=== PATIENT | male | born 1940 | race Caucasian/White ===

== ENCOUNTER 2016-11-28 09:40 | Emergency (ER) | payer MEDICARE ==
[~2016-11-28] VITALS: Ht 177.8 cm; Wt 84.1 kg
[~2016-11-28 09:40] MED LIST: ACET325T51 PO; ALFU10TA11 PO; AMLO5TAB2 PO; ASPI-973 PO; DULO20CA18 PO; LATA2.5D6 BOTH_EYES; LIP40 PO; LORA0.5T PO; METO-272 PO; OMEP40CA36 PO
--- NOTE | 2016-11-28 09:49 | ED.REPORT ---
HPI-Abd Pain M 40 and Over Date of Service Nov 28, 2016 ED Provider: Dr. Reyes Pt is a 76 y/o male w/ a hx of known cholelithiasis, CAD s/p CABG x1, bovine aortic valve replacement, hypertrophic cardiomyopathy, a-fib s/p ablation and pulmonary venous isolation maze, pacemaker insertion, HTN, GERD, presenting to the ED via EMS c/o RUQ pain onset today. He woke up today experiencing RUQ pain , fever of 102 F, diaphoresis, confusion described as decreased LOC, cough, and SOB. His noticed that he was somewhat jaundiced and called EMS after giving him Tylenol which resolved his fever. Pt denies CP, vomiting, diarrhea, change in baseline urinary frequency. His noticed he was somewhat confused yesterday night as well. He is not anticoagulated and takes aspirin daily. He rarely drinks alcohol. He was diagnosed with cholelithiasis 12/25/15 by US after presenting to the ED c/o back pain. There was a plan for cholelithiasis but an EKG abnormality was found which prompted further investigation which found him to have severe aortic stenosis and pericarditis. He underwent a bovine aortic valve replacement and CABG. Shortly after the CABG he presented to [facility] with a fever and delirium which resolved and the etiology was unclear. Nursing Notes Stated Complaint: RIGHT UPPER ABDOMINAL PAIN Nursing Notes Reviewed: Yes Allergies: Coded Allergies: iodine (Verified Allergy, Unknown, 04/04/16) Uncoded Allergies: Crab Meat (Allergy, Severe, Anaphylaxis, 01/18/14) Scheduled Alfuzosin ER (Alfuzosin ER) 10 Mg Tab.er.24h 10 MG PO DAILY Amlodipine (Amlodipine) 5 Mg Tablet 5 MG PO MORNING Aspirin (Aspirin) 81 Mg Tablet 162 MG PO DAILY Atorvastatin (Lipitor) 40 Mg Tablet 40 MG PO HS Duloxetine (Duloxetine) 20 Mg Capsule.dr 40 MG PO MORNING Latanoprost (Latanoprost) 2.5 Ml Drops 1 DROP BOTH_EYES HS Metoprolol Succinate ER (Metoprolol Succinate ER) 50 Mg Tab.er.24h 50 MG PO BID one in AM, one at bedtime Omeprazole (Omeprazole) 40 Mg Capsule.dr 40 MG PO MORNING Scheduled PRN Acetaminophen (Acetaminophen) 325 Mg Tablet 650 MG PO Q6H PRN PRN as ordered Lorazepam (Lorazepam) 0.5 Mg Tablet 0.5 MG PO HS PRN PRN For Insomnia General Time Seen by MD: 10:27 Chief Complaint Abdominal pain Hx Obtained From: Patient, EMS Arrived By: Ambulance Sudden in Onset?: No Onset Occurred: 1 - 4 hours ago Symptom Duration: Since onset Progression since Onset: Constant Location: : RUQ Quality: Painful Severity: Current: Moderate Severity: Maximum: Moderate Similar Sx Previous: Yes Past Medical History Past Medical History Notes: Dr. Shayne Law/ Dr. Riana Delgado Thoracic surgery (cardiothoracic vascular surgery) [phone] Past Medical History CAD s/p CABG x1 Hx of pericarditis Hx severe aortic stenosis s/p bovine aortic valve replacement Hypertrophic cardiomyopathy Cholelithiasis Atrial fibrillation s/p ablation and pulmonary venous isolation maze with left atrial appendage ligation Hx Mobitz II AV block s/p dual chamber pacemaker Hypertension GERD Anxiety Depression Glaucoma BPH Past Surgical History CABG x1 back surgery L5 double inguinal hernia surgery lymph node removal right armpit 2014: Pacemaker 02/24/2016: Bovine valve replacement (Dr. Cartagena) Catheter ablation and pulmonary venous isolation maze with left atrial appendage ligation Smoking History Former Smoker Social History Alcohol Use: Denies alcohol use Drug Use: Denies drug use Other Social History: Good social support, , Local resident Ambulatory Status Independent Review of Systems Constitutional: Reports: Fever Respiratory: Reports: Non-productive cough, Shortness of breath Cardiovascular: Denies: Chest pain GI: Reports: Abdominal pain, Denies: Diarrhea, Nausea, Vomiting Male: Denies Dysuria, Denies Urinary frequency (baseline) Complete sys rev & neg: except as marked. Skin: Reports Diaphoresis Physical Exam Initial Vital Signs Vital Signs (First) Date Time Temp Pulse Resp B/P Pulse Ox O2 Delivery O2 Flow Rate FiO2 11/28/16 10:29 36.8 95 14 149/96 97 Room Air Initial VS: Reviewed, Vital signs normal ENT: Mucous membranes moist, Conjunctiva normal Neck: Supple, Full range of motion Extremities: Vascular intact, Neuro intact Psychiatric: Mood/affect normal, Behavior normal, Normal thought content General/Constitutional: Awake, Alert, No acute distress, Cooperative, Not toxic appearing Appearance / Presentation: Positive: Icteric Respiratory / Chest: Breath sounds NL, Breath sounds = bilat, No respiratory distress, No rales, No rhonchi, No wheezing Cardiovascular: Heart rate NL, Regular rhythm, Heart sounds NL, No murmurs Abdomen: Atraumatic, Soft, No guarding, No rebound, No distention Tenderness/Guarding/Rebound: Positive: Tender RUQ... (Mild) Back: Full range of motion, Painless range of motion Head / Eyes: Normocephalic, PERRL Conjunctiva / Sclera: Positive: Icteric Skin: Atraumatic, Warm, Dry Color / Condition: Positive: Jaundice present Neurologic: Oriented X3, Speech NL, No motor deficits, No sensory deficits Mildly confused Interpretation & Diagnostics Interpretation & Diagnostics: US abdomen: IMPRESSION: The right kidney measures 12.9 cm and the left measures 10.4 cm. The liver is relatively small in size, the spleen is not enlarged, however. The liver echotexture is heterogeneous, suggestive of underlying cirrhosis. Several scattered hepatic cysts are again seen, gallstones are present within the gallbladder lumen, the gallbladder wall is at the upper limits of normal in thickness. A definite acute cholecystitis or biliary obstruction is not seen. Dictated by: Shawn Curtis M.D. on 11/28/2016 at 15:11 Approved by: Shawn Curtis M.D. on 11/28/2016 at 15:14 Lab Results Interpretation Result Diagram: 11/28/16 1051 11/28/16 1051 Test 11/28/16 10:31 11/28/16 10:51 11/28/16 11:48 11/28/16 13:46 Prothrombin Time 11.4sec (8.1-12.5) Prothromb Time International Ratio 1.06ratio White Blood Count 5.6th/mm3 (3.8-10.1) Red Blood Count 4.78mil/mm3 (4.40-5.80) Hemoglobin 14.5g/dL (13.8-17.2) Hematocrit 41.4% (41.0-50.0) Mean Corpuscular Volume 86.6fL (81-100) Mean Corpuscular Hemoglobin 30.3pg (27.0-35.0) Mean Corpuscular Hemoglobin Concent 35.0% (32.0-37.0) Red Cell Distribution Width 13.4% (12.3-15.4) Platelet Count 99bil/L (150-400) Neutrophils (%) (Auto) 86.4% (40-74) Lymphocytes (%) (Auto) 7.1% (14-46) Monocytes (%) (Auto) 5.9% (4-12) Eosinophils (%) (Auto) 0.2% (0-5) Basophils (%) (Auto) 0.2% (0-3) Sodium Level 129mEq/L (134-144) Potassium Level 4.1mEq/L (3.5-5.2) Chloride Level 94mEq/L (97-108) Carbon Dioxide Level 18mmol/L (18-29) Blood Urea Nitrogen 18mg/dL (8-27) Creatinine 0.76mg/dL (0.76-1.27) Estimat Glomerular Filtration Rate 106mL/min (>59) Glucose Level 100mg/dL (60-99) Lactic Acid Level 1.5mmol/L (0.4-2.0) Calcium Level 8.8mg/dL (8.5-10.1) Magnesium Level 1.7mg/dL (1.6-2.6) Total Bilirubin 7.8mg/dL (0.0-1.2) Aspartate Amino Transf (AST/SGOT) 90U/L (0-50) Alanine Aminotransferase (ALT/SGPT) 93U/L (0-44) Alkaline Phosphatase 144U/L (25-160) Ammonia 25ug/dL (18-53) Troponin T 0.010ug/L (0.0-0.011) Total Protein 7.2g/dL (6.4-8.4) Albumin 3.9g/dL (3.4-5.0) Lipase 16U/L (13-60) Urine Color Dark yellow (YELLOW) Urine Appearance Clear (CLEAR,HAZY) Urine pH 6.5 (5.0-8.0) Urine Specific Stedman 1.010 (1.003-1.035) Urine Protein 30mg/dL (NEG,TRACE) Urine Glucose (UA) Negativemg/dL (NEGATIVE) Urine Ketones 15mg/dL (NEGATIVE) Urine Occult Blood Negative (NEGATIVE) Urine Nitrite Negative (NEGATIVE) Urine Bilirubin Moderate (NEGATIVE) Urine Ictotest Positive (Negative) Urine Urobilinogen 1.0mg/dL (NORMAL) Urine Leukocyte Esterase Negative (NEGATIVE) Urine RBC 0-2/hpf (0-2) Urine WBC 0-5/hpf (0-5) Urine Epithelial Cells None/hpf (NONE-MOD) Urine Crystals None seen (NONE SEEN) Urine Bacteria None/hpf (NONE-FEW) Urine Hyaline Casts None/lpf (NONE) Urine Granular Casts None seen (NONE SEEN) Urine Waxy Casts None seen (NONE SEEN) Urine Red Blood Cell Casts None seen (NONE SEEN) Urine White Blood Cell Casts None seen (NONE SEEN) Urine Mucus None seen (None Seen) Urine Trichomonas None seen (NONE SEEN) Urine Yeast None (NONE SEEN) Urinalysis Comment None Urine Culture Reflexed Not indicated Procalcitonin 0.35ng/mL (0.00-0.08) Test 11/28/16 16:06 Hepatitis C Comment . ECG Interpretation ECG Interpretation: Atrial-sensed ventricular-paced rhythm rate 82 Time: 11:00 Interpreted by: ED physician Normal ECG Interpretation: No acute ischemic changes, No change from prior ECGs X-Ray Chest Interpretation Chest Xray Interpretation: IMPRESSION: Postsurgical changes as noted, no pneumonia found, source of fever is not seen. Dictated by: Shawn Curtis M.D. on 11/28/2016 at 11:43 Approved by: Shawn Curtis M.D. on 11/28/2016 at 11:44 View: Portable, 1 view Interpretation / Wet Read by: Interpret - Radiologist Re-Eval/Medical Decision Med Decision/Clinical Course Patient presents with a jaundice and confusion, concern for biliary pathology. Severely elevated bilirubin. IV Zosyn given for choledocholithiasis versus cholecystitis. Given the bilirubin elevation GI is consulted who recommend MRCP which cannot be done due to pacemaker, further recommendations for endoscopic ultrasound and possible MRCP which GI cannot perform. GI recommends transferring the patient to to another facility. [facility] has graciously accepted. Source of Hx: Old records Time of Eval: 11:50 Re-Evaluation/Progress Note: Pt rechecked. now in room. Awaiting labs. Time of Eval: 12:13 Re-Evaluation/Progress Note: Pt rechecked. Informed pt of need for US due to elevated LFTs and total bili. He agrees with plan. Time of Eval: 14:09 Re-Evaluation/Progress Note: Pt rechecked. Informed pt of US findings and need for admission vs transfer for ERCP. He agrees with plan. Unable to perform MRCP due to pacemaker. Time of Eval: 15:22 Re-Evaluation/Progress Note: Pt rechecked. Informed pt of need for transfer to obtain ERCP. He agrees with plan. Consultation : Referral / Consult Name: Tanner Batres MD Call Returned at: 15:20 Lead Ramp Agent: Agrees with eval, Agrees with plan Note: Consulted with GI. Recommends transfer because he can't do an ERCP. Counseled Regarding: Diagnosis, Lab results, Need for transfer Discharge & Departure Primary Impression: Choledocholithiasis with obstruction Cholecystitis presence: with cholecystitis Cholecystitis acuity: unspecified acuity Qualified Code: K80.41 - Calculus of bile duct with cholecystitis, unspecified, with obstruction Additional Impression: Jaundice Disposition: Transfer, Acute Care Facility Transfer Requested at: 16:00 [facility], Dr. Waite will consult Transfer Accepted: Yes Transfer Accepted at: 18:11 Transfer Reason: Higher level of care Patient Status: Stable Patient Informed: Yes Vital Signs - All Vital Signs Date Time Temp Pulse Resp B/P Pulse Ox O2 Delivery O2 Flow Rate FiO2 11/28/16 16:18 90 170/88 96 Room Air 11/28/16 15:22 97 17 180/104 97 Room Air 11/28/16 11:06 84 132/87 97 Room Air 11/28/16 10:29 36.8 95 14 149/96 97 Room Air )( All Prior VS Reviewed: Yes Condition: Stable Referrals: Eduardo Salazar MD (PCP) Crit Care Except Billable Proc Time Spent: 30-74 minutes Services Performed: Patient management by me, Time spent at bedside, Reviewing test results Critical Care Notes: 33, See MDM Scribe Attestation Portions of this note were transcribed by Hector Scott. I, Dr. Reyes, personally performed the history, physical exam and medical decision-making; I reviewed and confirmed the accuracy of the information in the transcribed note. copies to: Eduardo Salazar MD, Timothy S DO Nov 28, 2016 09:49 HECTOR SCOTT Nov 28, 2016 10:33
[2016-11-28 10:29] VITALS: BP 149/96; PULSE 95; RESP 14; O2SAT 97
[2016-11-28] MEDS ORDERED: 0.9% Sodium Chloride 1,000 ML IV ONE (10:31)
[2016-11-28 10:58] LABS: BASOPHILS % (AUTO) 0.2 % (0-3); EOSINOPHILS % (AUTO) 0.2 % (0-5); MONOCYTES % (AUTO) 5.9 % (4-12); Mean Corpuscular Hemoglobin 30.3 pg (27.0-35.0); Mean Corpuscular Volume 86.6 fL (81-100); NEUTROPHILS % (AUTO) 86.4 % (40-74); Platelet Count 99 bil/L (150-400)
[2016-11-28 11:06] VITALS: BP 132/87; PULSE 84; O2SAT 97
[2016-11-28 11:21] LABS: INR 1.06 ratio
[2016-11-28 11:29] LABS: TROPONIN T 0.01 ug/L (0.0-0.011)
[2016-11-28 11:40] LABS: Magnesium 1.7 mg/dL (1.6-2.6)
--- NOTE | 2016-11-28 11:45 | DRSVH ---
PROCEDURE: X-RAY CHEST ONE VIEW, PORTABLE ([id number]) INDICATIONS: fever TECHNIQUE: One view of the chest was acquired. COMPARISON: [facility], CR, XR CHEST 2VW, 04/03/2016, 23:37. [facility], CR , XR CHEST 1VW (PORTABLE), 03/05/2016, 11:18. FINDINGS: Surgical changes and devices: A dual-chamber cardiac pacemaking device and leads in normal position, sternotomy wires, presumed prior CABG. Lungs and pleura: No pleural effusions or pneumothorax. Lungs are clear. Mediastinum: Mediastinal contours appear normal. Heart size is normal. Bones and chest wall: No suspicious bony lesions. Overlying soft tissues appear unremarkable. IMPRESSION: Postsurgical changes as noted, no pneumonia found, source of fever is not seen. Dictated by: Shawn Curtis M.D. on 11/28/2016 at 11:43 Approved by: Shawn Curtis M.D. on 11/28/2016 at 11:44
[2016-11-28] MEDS: 0.9% Sodium Chloride 1,000 ML IV SCH ×2 (12:14→14:20)
[2016-11-28 12:25] LABS: APPEARANCE,URINE CLEAR (CLEAR,HAZY); COLOR,URINE DARK YELLOW (YELLOW); PH,URINE 6.5 (5.0-8.0)
[2016-11-28 12:26] LABS: ICTOTEST,URINE POSITIVE (Negative); OCCULT BLOOD,URINE NEGATIVE (NEGATIVE)
[2016-11-28] MEDS ORDERED: Piperacillin-Tazo 3.375 Gm Inj 3.375 GM in Dextrose 5% Minibag Plus 50 ML IV ONE (13:55)
--- NOTE | 2016-11-28 15:15 | DRSVH ---
PROCEDURE: US ABDOMEN INDICATIONS: epigastric pain, bilirubing of 7.8 TECHNIQUE: Real-time scanning was performed of the abdominal and retroperitoneal organs, with image documentatio n. COMPARISON: [facility], US, US ABDOMEN, 12/25/2015, 13:16. FINDINGS: Liver length: 13.34 cm Gallbladder Wall Thickness: 3 mm CHD: 5.60 mm CBD: 6.50 mm Spleen length: 12.25 cm Right kidney length: 12.93 cm Left kidney length: 10.37 cm Aorta(Proximal): 2.82 cm Aorta(Mid): 1.94 cm Aorta(Distal): 1.79 cm RCIA: 1.34 cm LCIA: 1.19 cm Liver: Liver is relatively small in size and mildly heterogeneous in echotexture with appearance sug gestive of cirrhotic change, and multiple scattered hepatic cysts are present. Gallbladder: Gallbladder contains multiple small stones with gallbladder wall thickening at the upper limits of normal at 3.0 mm, without adjacent pericholecystic free fluid and there is no definite ten derness during sonographic palpation. Biliary ducts: Intrahepatic bile ducts are non-dilated. Extrahepatic bile duct caliber is normal. Normal is 6-7 mm or less in diameter, or 10 mm or less post-cholecystectomy. Pancreas: Not well-seen due to bowel gas Spleen: Spleen is normal in size and homogeneous in echotexture. Kidneys: Kidneys are normal in size and echotexture. No hydronephrosis or nephrolithiasis. No nirmala d masses. Aorta: Visualized aorta is normal in caliber at less than 3 cm. Iliacs: Proximal common iliac arteries are normal in caliber at less than 2.5 cm. IVC: Intrahepatic inferior vena cava is patent. Miscellaneous: No free abdominal fluid. IMPRESSION: The right kidney measures 12.9 cm and the left measures 10.4 cm. The liver is relatively small in size, the spleen is not enlarged, however. The liver echotexture is heterogeneous, suggest julius of underlying cirrhosis. Several scattered hepatic cysts are again seen, gallstones are present within the gallbladder lumen, the gallbladder wall is at the upper limits of normal in thickness. A definite acute cholecystitis o r biliary obstruction is not seen. Dictated by: Shawn Curtis M.D. on 11/28/2016 at 15:11 Approved by: Shawn Curtis M.D. on 11/28/2016 at 15:14
[2016-11-28 15:22] VITALS: BP 180/104; PULSE 97; RESP 17; O2SAT 97
[2016-11-28 16:18] VITALS: BP 170/88; PULSE 90; O2SAT 96
[2016-11-28 19:13] VITALS: BP 146/81; PULSE 89; RESP 17; O2SAT 97
[2016-11-28 19:58] VITALS: BP 146/81; PULSE 89; RESP 17; O2SAT 97
[2016-11-29 09:14] LABS: Hepatitis A Antibody IgM Negative (Negative); Hepatitis B Core Antibody IgM Negative (Negative)
== END 2016-11-28 19:59 | disposition short-term general hospital (02) ==
LOC: EDBD 09:40 → EDUNIT# 09:40 → SED 09:40
DX: K80.41 Calculus of bile duct with cholecystitis, unspecified, with obstruction (principal); R17 Unspecified jaundice; I25.10 Atherosclerotic heart disease of native coronary artery without angina pectoris; I10 Essential (primary) hypertension; K21.9 Gastro-esophageal reflux disease without esophagitis; F41.9 Anxiety disorder, unspecified; F32.9 Major depressive disorder, single episode, unspecified; Z95.0 Presence of cardiac pacemaker; Z95.1 Presence of aortocoronary bypass graft; Z87.891 Personal history of nicotine dependence; Z79.82 Long term (current) use of aspirin
CPT/HCPCS: 36415; 71010; 76700; 80053; 81000; 82140; 83605; 83690; 83735; 84145; 84484; 85025; 85610; 86705; 86709; 87040; 87340; 87341; 93005; 96361; 96365; 99291; G0472; J2543; J7030

== ENCOUNTER → 2016-12-27 | Day surgery (SDC) | payer MEDICARE ==
--- NOTE | 2016-12-22 16:52 | PCM.ANEPRE ---
Anesthesia Pre-Op Review Reason for Review: Cardiac concerns Anesthesia Recommendations: Proceed with Procedure Additional Comments Chart evaluated in absence of direct patient assessment. Pt Hx bicuspid AV S/P AVR, 1V CABG (Diag) 03/02 subsequently found to be stable in interval / cardiology note 10/01. EF 60-65% without significant AV gradiant across prosthetic valve / 07/01 TTE. Additional risk factors PAF, Hypertrophic CM, PPM, HTN, Anticoagulation Hx, HH/ GERD, Anx, Tobaccoism. Moderate risk Pt for low risk procedure. Pt will need assessment of functional capacity, as well as cardiac Sx. Pending stable presentation, reasonable to proceed as planned. Chart Reviewed by: Bhupinder Abreu DO Dec 22, 2016 16:52
[2016-12-27] VITALS (10 sets, daily range): BP systolic 110–158; BP diastolic 62–99; PULSE 70; RESP 9–17; O2SAT 94–99
[~2016-12-27] VITALS: Ht 179.1 cm; Wt 91.9 kg
[~2016-12-27] MED LIST changes: +ACET-171 PO; -ACET325T51 PO; -AMLO5TAB2 PO; +Bupivacaine 0.5% 50 mL Inj INFILTRATE ONE; +CeFAZolin 2 Gm/50 mL D5W Duplex Bag IV ONE; +CeFAZolin Inj 2 GM in IV Premix 1 EACH IV ONE; -DULO20CA18 PO; +DULO60CA61 PO; +Dexamethasone 4 mg/mL Inj IVPUSH PRN; +Dexamethasone 4 mg/mL Inj ONE; +EPHEDrine Sulfate 50 mg/mL Inj IVPUSH PRN; +ERGO2000 PO; +Glycopyrrolate 0.2 MG/ML 1mL Inj ONE; +HYDR-3090 PO; +HYDR-3740 PO; +HYDR-4003 PO; +HYDROcodone-APAP 10-325 mg PO ONE; -LATA2.5D6 BOTH_EYES; +LATA2.5D6 OP; -LORA0.5T PO; +Labetalol 5 mg/mL 20 mL Inj IV PRN; +Lactated Ringer's 1,000 ML IV SCH; +Lactated Ringer's 500 ML IV PRN; -METO-272 PO; +METO-369 PO; +MetoCLOpramide 5 mg/mL 2 mL Inj IVPUSH PRN; +MetoCLOpramide 5 mg/mL 2 mL Inj ONE; +Neostigmine 1 mg/mL 10 mL Inj ONE; +Ondansetron 2 mg/mL 2 mL Inj IVPUSH PRN; +Ondansetron 2 mg/mL 2 mL Inj ONE; +Phenylephrine 10,000 mCg/mL Inj IVPUSH PRN; +Propofol 10,000 mCg/mL 20 mL Inj ONE; +Rocuronium 10 mg/mL 5 mL Inj ONE; +fentaNYL-PF 50 mCg/mL 2 mL Inj ONE
[2016-12-27] MEDS: Lactated Ringer's 1,000 ML IV SCH ×2 (05:49→07:43)
--- NOTE | 2016-12-27 07:23 | PCM.HPANE ---
Patient Data Surgeon Admitting Provider: Attending Provider:Thai Castillo MD Primary Care Physician:Nancy Other Provider:Brody Blandon Anesthesia Reason for Visit Choledoccholithiasis Ht/WT & BMI Height (Feet): 5 Height (Inches): 10.5 Weight (Kilograms): 91.9 Body Mass Index 28.00 Allergies Coded Allergies: iodine (Verified Allergy, Unknown, 12/22/16) oxycodone (Verified Adverse Reaction, Severe, Extreme mood swings and agressive behavior, 12/22/16) Uncoded Allergies: Crab Meat (Allergy, Severe, Anaphylaxis, 01/18/14) Past Anesthesia History Anesthesia History: Denies:: Abnormal Airway, Anesthesia Reactions, Difficult Intubation, Fam Anesthesia Reaction, Fam Malignant Hypertherm, Malignant Hyperthermia Diabetes History Hx Diabetes?: No MRSA MRSA: No Medications Blood Thinner: Aspirin Last Dose Blood Thinner: Dec 22, 2016 Hypertension Medication: Yes (Metoprolol) Home Meds Incl Beta Berry: Yes Date Beta Berry Taken: Dec 27, 2016 Time Beta Berry Taken: 329 Reported Medications Acetaminophen 500 Mg Hpmirx351 Mg PO Q6H PRN For Fever 12/27/16 Hydrocodone-Acetaminophen 5-325 mg 1 Each Tablet1-2 Mg PO PRN #20 12/27/16 Ergocalciferol (Vitamin D2) (Vitamin D2)2,000 Unit Tablet2,000 Unit PO DAILY 12/22/16 Latanoprost 2.5 Ml Drops1 Gtt OP HS #1 BOTTLE 12/22/16 Alfuzosin ER 10 Mg Tab.er.24h10 Mg PO HS 12/22/16 Aspirin 81 Mg Dvntyw884 Mg PO DAILY Ref 0 12/22/16 Atorvastatin (Lipitor)40 Mg Coemxn58 Mg PO HS Ref 0 12/22/16 Duloxetine 60 Mg Capsule.dr60 Mg PO AM Ref 0 12/22/16 Metoprolol Succinate ER 50 Mg Tab.er.24h50 Mg PO BID Ref 0 12/22/16 Omeprazole 40 Mg Capsule.dr40 Mg PO AM Ref 0 12/22/16 Discontinued Reported Medications Omeprazole 40 Mg Capsule.dr40 Mg PO MORNING 04/04/16 Atorvastatin (Lipitor)40 Mg Itjrxi24 Mg PO HS 04/04/16 Lorazepam 0.5 Mg Tablet0.5 Mg PO HS PRN For Insomnia 04/04/16 Acetaminophen 325 Mg Cloemw243 Mg PO Q6H PRN as ordered 04/04/16 Alfuzosin ER 10 Mg Tab.er.24h10 Mg PO DAILY 04/04/16 Metoprolol Succinate ER 50 Mg Tab.er.24h50 Mg PO BID one in AM, one at bedtime 04/04/16 Aspirin 81 Mg Vocmqx862 Mg PO DAILY 04/04/16 Amlodipine 5 Mg Tablet5 Mg PO MORNING 02/02/16 Latanoprost 2.5 Ml Drops1 Drop BOTH_EYES HS 01/14/16 Duloxetine 20 Mg Capsule.dr40 Mg PO MORNING 01/14/16 History History of ENT Problems?: Yes HEENT History: Positive for:: Glaucoma Hearing Problem Denies:: Abnormal Airway Cataracts Difficult Intubation Dysphagia Sinus Problem TMJ Denture Type: None Teeth Condition: Within Normal Limits Hx of Heart Problems?: Yes Cardiovascular History: Positive for:: Atrial Fibrillation Cardiac Surgery (pacemaker, aortic valve replacement and bypass and ablation) Coronary Artery Disease Heart Murmur (06/20 ejection murmur) Hypertension Irregular Heartbeat (HX ATRIAL FIB, some ventricular dysrhthmia) Pacemaker (2013) Denies:: AICD Chest Pain Congestive Heart Failure Edema Thrombophlebitis Valvular Heart Disease Hx of Respiratory Problem?: Yes Respiratory History: Positive for:: Chest Surgery Dyspnea (short of breath - after flight of stairs, dizzy) Denies:: Asthma COPD Emphysema (exposure to "agent [place]"- not worked up for) Hemoptysis Oxygen Administration Pneumonia Pulmonary Embolism Tuberculosis Use of C-PAP Machine (sleep study started -not completed r/t heart issues) Hx Neurologic Problems?: Yes Neurological History: Positive for:: Dizziness (sitting to standing or quick movement of head) Denies:: Alzheimer's Disease CVA Dementia Headaches Multiple Sclerosis Parkinson's Disease Seizures TIA Hx of GI Problems?: Yes Other GI Pertinent History: 12/12/16 ERCP with stone removal = Prov Chema Hx of Problems?: No Genitourinary History: Denies:: HX of Hemodialysis Kidney Stones Urinary Tract Infection HX of Peritoneal Dialysis: No Male Hx: Positive for:: Prostate Problems (frequent urination at noc) Denies:: Scrotal Mass Testicular Surgery Skin History: Denies:: History Skin Disorders? Pressure Ulcers Hx Musculoskeletal Problems?: Yes Musculoskeletal History: Positive for:: Back Injury (hx of L5 lami) Rheumatoid Arthritis Denies:: Degenerative Joint Joint Replacement Musculoskeletal Trauma Osteoarthritis Systemic Lupus Hx of Psycho/Social Problems?: Yes Psycho Social History: Positive for:: Anxiety Hx Depression Denies:: Bipolar Disorder Hx Surgeries?: Yes (aortic valve relpacement,bilat hernia repair, lumbar back) Hx Any Other Health Problems?: Yes Other History: Positive for:: Hospitalization (ERCP, Galbaldder issues) Denies:: Cancer Thyroid Disease History Blood Transfusions: Positive for:: Accept Blood Products? Denies:: Blood Transfuse Reaction Blood Transfusions Hx Diabetes: No Hx Alcohol Use: NoHx Substance Use: No Smoking Status: Former Smoker Have You Smoked inLast 12 mo: No Stop/Bang Treated for Sleep Apnea?: No Do You Have a CPAP Machine?: No S-Snoring: Do You Snore Loudly: No T-Tired: feel tired, fatigued: Yes O-Obsered: Observed not breath: No P-Blood Pressure: treated: Yes B- Body Mass Index > 35 kg/m2: No A- Age over 50: Yes N- Neck Large Circumference: No G- Gender Male: Yes VENECIA Total Score: 4 VENECIA Risk Assessment: Low Risk, <3 Yes Risk Assessment Category Category 1A: Patient has history of documented sleep apnea, and HAS NOT received any narcotic, sedative or anesthesia administration during this stay. Category 1B: Patient has history of documented sleep apnea, and HAS received any narcotic , sedative or anesthesia administration during this stay Category 2: Patient has SUSPECTED Obstructive Sleep Apnea, and HAS received any narcotic , sedative or anesthesia administration during this stay. Category 3: Patient has SUSPECTED Obstructive Sleep Apnea and HAS NOT received narcotic, sedative or anesthesia administration during this stay. Category 4: Outpatient in Procedural Areas with known sleep apnea or who screen positive for High Risk via the STOP/BANG questionnaire. Exam Exam Vital Signs Vital Signs Date Time Temp Pulse Resp B/P Pulse Ox O2 Delivery O2 Flow Rate FiO2 12/27/16 06:14 36.1 70 17 113/74 96 Room Air General Appearance: Alert HEENT/AIRWAY: MP 2 Lungs: Normal Air Movement Heart: Regular Rate/Rhythm Meds/Labs/Diagnostics Admission Meds Current Medications Lactated Ringer's (Lr) 1,000 ml @ 120 mls/hr Q8H20M IV Last administered on t 05:49; Start 12/27/16 at 05:00; Stop 12/27/16 at 13:19 Gabapentin (Neurontin) 600 mg PREOP ONCE PO Last administered on 12/27/16 06: 04; Start 12/27/16 at 06:00; Stop 12/27/16 at 06:01; Status DC Acetaminophen (Tylenol) 1,000 mg PREOP ONCE PO Last administered on 12/27/16 06:04; Start 12/27/16 at 06:00; Stop 12/27/16 at 06:01; Status DC Plan Impression Patient chart reviewed, patient interviewed and anesthestic plan with risks, benefits, and alternatives discussed, and informed consent obtained. ASA Physical Status: ASA3 Severe Disease Anesthetic Plan: GA Bene/Risks/Altern/Consents: Yes HP Complete Prior to Induction: Yes Steven Leary MD Dec 27, 2016 07:23
[2016-12-27] MEDS: fentaNYL-PF 50 mCg/mL 2 mL Inj IVPUSH PRN ×2 (10:00→10:12)
--- NOTE | 2016-12-27 10:29 | PCM.DISURG ---
Surgical Discharge Instruction Date of Service Dec 27, 2016 Dates of Hospitalization Date of Hospital Admission Day Surgery 12/27/2016 Providers Admitting Physician: Primary Care Physician: Nopcp Attending Physician: Thai Castillo MD Discharge Diagnosis Discharge Diagnosis 1. Choledocholithiasis 2. Laparoscopic cholecystectomy with cholangiogram Post Operative diagnosis Same as above Diet Discharge Diet: Low fat Activity Discharge Activity-General: Activity as pain allows, No lifting >15 pounds for 2 weeks Dressing and Incisional Care Dressing Care: Allow Steri Stripes to fall off (1 week), Remove outer dressing after 24 hrs Hygiene: May shower, DO NOT soak incision under water Follow Up Plan Follow Up Plan Follow-up with outpatient general surgery physician academic affairs assistant clinic in 2-3 weeks Follow-up Provider (F9): Miryam Frye PAC Follow-up appointment: Weeks (2-3) Shawn Bello PA-C Dec 27, 2016 10:29
--- NOTE | 2016-12-27 13:13 | PCM.ANEP1 ---
Post Anesthesia PACU Phase 1 Assessment Vital Signs Vital Signs Date Time Temp Pulse Resp B/P Pulse Ox O2 Delivery O2 Flow Rate FiO2 12/27/16 11:30 36.2 70 14 110/62 96 Room Air 12/27/16 10:35 36.0 70 12 112/68 94 Room Air 12/27/16 10:25 11 122/76 95 Nasal Cannula 1 12/27/16 10:20 35.9 70 14 119/82 96 Nasal Cannula 3 12/27/16 10:12 70 13 131/90 96 Nasal Cannula 3 12/27/16 10:00 70 9 158/86 94 Room Air 12/27/16 09:41 70 14 153/96 99 Simple Mask 10 12/27/16 09:35 70 14 150/99 99 Simple Mask 10 12/27/16 09:26 36.3 70 12 156/94 99 Simple Mask 10 12/27/16 06:14 36.1 70 17 113/74 96 Room Air Anesthetic Administered: GA Level of Alertness: Awake, talking Pain: No Nausea or Vomiting: No CV Function & Hydration Stable: Yes Airway Device: Oralpharangeal Airway Lungs: Normal Air Movement PACU Phase 2 Assessment Patient Instructions Provided: N/A Steven Leary MD Dec 27, 2016 13:13
--- NOTE | 2016-12-27 17:01 | DRSVH ---
PROCEDURE: X-RAY OPERATIVE CHOLANGIOGRAM ([id number]) INDICATIONS: CHOLEDOCCHOLILITHIASIS COMPARISON: None. FINDINGS: Biliary ducts: The surgeon injected contrast into the biliary ducts after cannulation of the cystic duct stump. The visualized intra- and extrahepatic bile ducts are normal in caliber, without strictu res. Small intraluminal filling defect visualized involving the distal common bile duct. No evidenc e for iatrogenic ductal injury. Duodenum: Contrast flows promptly through the sphincter of Oddi into the duodenum, which appears nor mal in caliber. IMPRESSION: Intraluminal filling defect involving the distal common bile duct and retained stone trent ot be excluded. If indicated MRCP could be performed. Dictated by: Deejay BEST Interpreted: Katherin Ventura MD on 12/27/2016 at 9:09 Approved by: Katherin Ventura M.D. on 12/27/2016 at 16:59
--- NOTE | 2016-12-30 11:28 | PATH ---
SURGICAL PATHOLOGY Attending Physician:Thai Castillo MD CASE STATUS: Signed Out PATIENT NAME: ROBERT MARTELL PID: [id number] : 1940 DATE COLLECTED:12/27/2016 00:00 SPECIMEN: Gallbladder CLINICAL HISTORY: CHOLEDOCHOLITHIASIS 1). GALLBLADDER FINAL DIAGNOSIS: Gallbladder, Cholecystectomy: Chronic cholecystitis. Cholelithiasis. ICD10: K80.1 GROSS DESCRIPTION: Received one formalin-filled container labeled with the patient' s name, labeled "gallbladder". The specimen consists of an opened 7.5 x 2.5 x 1.5 cm gallbladder. The cystic duct is possibly identified. The serosa is smooth. The wall is 0.2-0.4 cm in thickness. The mucosa is dark coronado in color. The lumen contains four coronado-brown, irregular-shaped calculi which range in size from 0.7 cm to 1.0 cm. Five termite control representative sections are submitted in one cassette. ([id number]) ICD-9 CODES: CPT CODES: 1: 79083 Electronically Signed Out Alfonso Enciso MD, Ph.D. [facility] [address], [place] [address] Technical component performed at [facility], [address] [place] [address] Ave[address], [place], [address]
--- NOTE | 2017-01-12 16:47 | OP ---
[address] [address] OPERATIVE REPORT PATIENT: ROBERT MARTELL : 1940 MR#: [id number] ADMIT: 12/27/2016 JOB ID: [id number] DATE OF SURGERY: 12/27/2016 SURGEON: Thai Castillo MD and Dr. Neil Angel. HEEL COVER SPLITTER: Shawn Bello PA-C. PREOPERATIVE DIAGNOSIS(ES): Symptomatic gallstones. POSTOPERATIVE DIAGNOSIS(ES): Symptomatic gallstones. PROCEDURE: Laparoscopic cholecystectomy with cholangiogram. INDICATIONS: This is a 76-year-old man with symptomatic gallstones, previous possible choledocholithiasis who presents for laparoscopic cholecystectomy with cholangiogram. He had been initially seen and scheduled by Dr. Vern Ponce, but Dr. Ponce is out and the patient would like to proceed with me as his surgeon. He was met in the preop area and all questions have been answered. FINDINGS: 1. A neurosurgical physician assistant was necessary for retraction and camera operation. 2. This note is a redictation from memory and review of the hand written operative note, two weeks after the procedure. 3. The patient had a fair amount of chronic inflammation around the gallbladder, had a normal intraoperative cholangiogram. PROCEDURE IN DETAIL: The SCOAP protocol was followed. The patient received perioperative antibiotics. We obtained access with a Veress needle in the operating room after induction of general anesthetic and prep and drape of the abdomen in a sterile fashion. Four ports were placed. Gallbladder was retracted cephalad. We dissected the triangle of Calot out. We obtained our cholangiogram which demonstrated normal findings. The cystic duct was clipped and secured on the patient's side as well as the gallbladder side and then divided. The gallbladder was dissected out of the liver bed and removed through the larger port in the left upper quadrant. Appropriate irrigation was performed. Hemostasis was obtained. There was no sign of a bile leak. The ports were removed and the wounds were closed. Cholangiogram demonstrated no evidence of common duct stones and was performed unremarkably.
== END | disposition home or self-care (01) ==
LOC: SAS 05:33
PROVIDERS: ATTEND Surgery
DX: K80.10 Calculus of gallbladder with chronic cholecystitis without obstruction (principal); I25.10 Atherosclerotic heart disease of native coronary artery without angina pectoris; I42.2 Other hypertrophic cardiomyopathy; I48.0 Paroxysmal atrial fibrillation; I10 Essential (primary) hypertension; Z87.891 Personal history of nicotine dependence; Z95.2 Presence of prosthetic heart valve; Z95.0 Presence of cardiac pacemaker; Z95.1 Presence of aortocoronary bypass graft
CPT/HCPCS: 47563; 74300; 88304; J0690; J1100; J2405; J2704; J2710; J2765; J3010; J7120; Q9967